=== PATIENT | female | born 2000 | race Caucasian/White ===

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

== ENCOUNTER → 2020-09-06 | Outpatient (CLI) | payer OTHER ==
[~2020-09-06] MED LIST: ATARAX 10MG10 MG/TAB PO; ATARAX 25MG25 MG/TAB PO; BACTRIM DS 8001 TAB PO; CONCERTA18 MG PO; INDERAL 10MG10 MG PO; PROZAC 20MG20 MG PO; SUDAFED30 MG PO; SYNTHROID 0.0.025 MG PO; SYNTHROID0.075 MG/T PO; VITAMIND3 5000; ZOLOFT 100MG100 MG PO
== END ==
LOC: COL.RAD 13:39
DX: E06.9 Thyroiditis, unspecified (principal); E01.0 Iodine-deficiency related diffuse (endemic) goiter

== ENCOUNTER → 2020-09-25 | Outpatient (CLI) | payer OTHER ==
[~2020-09-25] VITALS: Ht 167.6 cm; Wt 50.7 kg
[2020-09-25 07:08] VITALS: BP 101/63; PULSE 77
[2020-09-25 08:06] VITALS: BP 103/70; PULSE 67
== END ==
LOC: COL.RAD 06:45
DX: E04.2 Nontoxic multinodular goiter (principal)
CPT/HCPCS: 32140